=== PATIENT | male | born 1945 | race Caucasian/White ===

== ENCOUNTER 2023-10-12 09:55 | Day surgery (SDC) | payer MEDICARE, OTHER ==
[2023-10-12 10:40] LABS: Hematocrit 37.7 % (42.0-52.0); Hemoglobin 12.5 g/dL (14.0-18.0)
[2023-10-12 11:04] LABS: Anion Gap 11 mmol/L (10-20); BUN (Urea Nitrogen) 9 mg/dL (8.4-25.7); Calc. Creatinine Clearance 134 mL/min (70-130); Calcium 9.1 mg/dL (7.8-10.44); Carbon Dioxide 25 mmol/L (23-31); Chloride 110 mmol/L (98-107); Estimated GFR 89; Glucose 91 mg/dL (83-110); Sodium 142 mmol/L (136-145)
[2023-10-12] MEDS ORDERED: EPINEPHrine 1 MG/ML VIAL ONE (11:05)
[2023-10-12] MEDS ORDERED: Oxymetazoline HCl 0.05% (30 ML BOT) ONE (11:06)
[2023-10-12] MEDS ORDERED: Lidocaine 1% (PF) 30 ML VIAL ONE (11:06)
[2023-10-12] MEDS ORDERED: Dexmedetomidine 200 MCG/2 ML VIAL ONE (11:09)
[2023-10-12] MEDS ORDERED: fentaNYL PF 100 MCG/2 ML SYRINGE ONE (11:09)
[2023-10-12] MEDS ORDERED: Ondansetron PF 4 MG/2 ML Vial ONE ×2 (11:09→11:33)
[2023-10-12] MEDS ORDERED: Dexamethasone 20 MG/5 ML VIAL ONE ×2 (11:09→11:33)
[2023-10-12] MEDS ORDERED: PROPOFOL 20 ML ONE (11:09)
[2023-10-12] MEDS ORDERED: ePHEDrine Sulfate 50 MG/10 ML VIAL ONE ×2 (11:10→11:33)
[2023-10-12] MEDS ORDERED: Ketamine In 0.9 % NaCl 50 MG/5 ML SYRINGE ONE (11:29)
[2023-10-12] MEDS ORDERED: Rocuronium Bromide 10 MG/ML (10ML VIAL) ONE (11:33)
[2023-10-12] MEDS ORDERED: NEOSTIGMINE 3 MG/3 ML SYR 3 MG/3 ML SYRINGE ONE (11:33)
[2023-10-12] MEDS ORDERED: PROPOFOL 200 MG/20 ML VIAL ONE (11:33)
[2023-10-12] MEDS ORDERED: Glycopyrrolate 0.2 MG/ML 5 ML SYRINGE ONE (11:33)
[2023-10-12] MEDS ORDERED: Lidocaine 1% PF 5 ML VIAL ONE (11:33)
== END 2023-10-12 15:05 | disposition home or self-care (01) ==
LOC: SDC 09:55
PROVIDERS: ATTEND Specialist
PROC: 09TV4ZZ Resection of Left Ethmoid Sinus, Percutaneous Endoscopic Approach (ICD-10-PCS; principal; 2023-10-12)
PROC: 09TU4ZZ Resection of Right Ethmoid Sinus, Percutaneous Endoscopic Approach (ICD-10-PCS; 2023-10-12)
PROC: 8E09XBZ Computer Assisted Procedure of Head and Neck Region (ICD-10-PCS; 2023-10-12)
PROC: 09BM0ZZ Excision of Nasal Septum, Open Approach (ICD-10-PCS; 2023-10-12)
DX: J34.3 Hypertrophy of nasal turbinates (principal); J34.2 Deviated nasal septum; J32.8 Other chronic sinusitis; J38.5 Laryngeal spasm; I10 Essential (primary) hypertension; E03.9 Hypothyroidism, unspecified; H91.90 Unspecified hearing loss, unspecified ear; Z79.890 Hormone replacement therapy; Z79.899 Other long term (current) drug therapy
CPT/HCPCS: 30520; 31257; 31267; 31276; 80048; 85014; 85018; 93005; J0171; 93010; J1100; J2001; J2405; J2704; J3490

== ENCOUNTER 2024-09-04 06:00 | Day surgery (SDC) | payer MEDICARE, OTHER ==
[2024-09-02 15:37] VITALS: BMI 36.6
[2024-09-04] MEDS ORDERED: Adenosine 6 mg (2 mL) VIAL ONE (06:18)
[2024-09-04] MEDS ORDERED: Verapamil 5 MG/2 ML VIAL ONE (06:18)
[2024-09-04] MEDS ORDERED: Heparin 10,000 UNITS/ 10 ML VIAL ONE (06:18)
[2024-09-04] MEDS ORDERED: Nitroglycerin 50 MG/250 ML BOT 0 ML ONE (06:19)
[2024-09-04 06:44] LABS: Cardiac Risk 3.9 (Less than 4.5)
[2024-09-04] MEDS ORDERED: fentaNYL 50 mcg/mL 1 mL Vial ONE (07:00)
[2024-09-04] MEDS ORDERED: Midazolam HCl 2 mg/2 ml Vial ONE (07:00)
[2024-09-04] MEDS ORDERED: PHENYLEPHRINE-NS 100 MCG/ML 10 ML SYRINGE ONE (07:33)
[2024-09-04] MEDS ORDERED: Atropine Sulfate 1 mg/10 ml Syringe ONE (07:35)
[2024-09-04] MEDS ORDERED: DOPamine 400 MG/D5W 250 ML 250 ML ONE (07:40)
[2024-09-04] MEDS ORDERED: NOREPINEPHRINE 8 MG/250 ML-D5W 250 ML ONE (07:46)
[2024-09-04] MEDS ORDERED: Protamine Sulfate 50 MG/5 ML VIAL ONE (08:00)
== END 2024-09-04 14:55 | disposition home or self-care (01) ==
LOC: CCL 06:00
PROVIDERS: ATTEND Internal Medicine Cardiovascular Disease
DX: I11.0 Hypertensive heart disease with heart failure (principal); I50.22 Chronic systolic (congestive) heart failure; I48.91 Unspecified atrial fibrillation; I44.7 Left bundle-branch block, unspecified; R94.39 Abnormal result of other cardiovascular function study; E78.00 Pure hypercholesterolemia, unspecified; E03.9 Hypothyroidism, unspecified; I25.10 Atherosclerotic heart disease of native coronary artery without angina pectoris; Z90.49 Acquired absence of other specified parts of digestive tract; Z87.891 Personal history of nicotine dependence; Z98.890 Other specified postprocedural states; Z79.890 Hormone replacement therapy; Z79.899 Other long term (current) drug therapy
CPT/HCPCS: 80061; 85347; 93458; C1769 ×2; J0461; J1265; J1644; J2250; J2720; J3010; 36415; 99152; 99153; J0153

== ENCOUNTER 2024-09-17 06:12 | Day surgery (SDC) | payer MEDICARE, OTHER ==
[2024-09-16 13:17] VITALS: BMI 35.9
[2024-09-17] MEDS ORDERED: Midazolam HCl 2 mg/2 ml Vial ONE (08:09)
[2024-09-17] MEDS ORDERED: Lidocaine 1% PF 5 ML VIAL ONE (08:17)
[2024-09-17] MEDS ORDERED: PROPOFOL 200 MG/20 ML VIAL ONE (08:17)
== END 2024-09-17 09:55 | disposition home or self-care (01) ==
LOC: SDC 06:12
PROVIDERS: ATTEND Internal Medicine Cardiovascular Disease
PROC: B24BZZ4 Ultrasonography of Heart with Aorta, Transesophageal (ICD-10-PCS; principal; 2024-09-17)
PROC: 5A2204Z Restoration of Cardiac Rhythm, Single (ICD-10-PCS; 2024-09-17)
DX: I48.91 Unspecified atrial fibrillation (principal); I11.0 Hypertensive heart disease with heart failure; I50.22 Chronic systolic (congestive) heart failure; I44.7 Left bundle-branch block, unspecified; I25.10 Atherosclerotic heart disease of native coronary artery without angina pectoris; E03.9 Hypothyroidism, unspecified; E78.00 Pure hypercholesterolemia, unspecified; K27.9 Peptic ulcer, site unspecified, unspecified as acute or chronic, without hemorrhage or perforation; Z85.828 Personal history of other malignant neoplasm of skin; Z87.891 Personal history of nicotine dependence; Z90.49 Acquired absence of other specified parts of digestive tract; Z79.890 Hormone replacement therapy; Z79.01 Long term (current) use of anticoagulants; Z79.899 Other long term (current) drug therapy
CPT/HCPCS: 92960; 93005; 93312; J2250; J2704; 93010